=== PATIENT | female | born 1960 | race Caucasian/White ===

== ENCOUNTER 2024-06-02 09:06 | Day surgery (SDC) | payer MEDICARE, OTHER ==
[~2024-06-02] VITALS: Ht 167.6 cm; Wt 95.3 kg
[2024-06-02] MEDS ORDERED: MIDAZOLAM HCL 5 MG/5 ML VIAL ONE (11:42)
[2024-06-02] MEDS ORDERED: MEPERIDINE 100 MG INJ. 100 MG/ML VIAL ONE (11:42)
[2024-06-02] MEDS ORDERED: ONDANSETRON HCL 4 MG/2 ML VIAL ONE (13:11)
[2024-06-02] MEDS: ONDANSETRON HCL 4 MG/2 ML VIAL IVP ONE (13:15)
[2024-06-02 19:47] VITALS: BP_SYST 144; PULSE 86; RESP 22; TEMP 96.7; O2SAT 97
== END 2024-06-02 13:30 | disposition home or self-care (01) ==
LOC: SMU 09:06 → SDS 09:06
PROVIDERS: ATTEND Internal Medicine Gastroenterology
DX: K57.92 Diverticulitis of intestine, part unspecified, without perforation or abscess without bleeding (principal); K63.89 Other specified diseases of intestine; K63.5 Polyp of colon; A04.71 Enterocolitis due to Clostridium difficile, recurrent; R19.7 Diarrhea, unspecified; K57.30 Diverticulosis of large intestine without perforation or abscess without bleeding; K64.8 Other hemorrhoids; I10 Essential (primary) hypertension; E78.5 Hyperlipidemia, unspecified; Z79.899 Other long term (current) drug therapy; Z87.891 Personal history of nicotine dependence
CPT/HCPCS: 45385; 99152; 88305; G0378; J2250; J2405; J2175